=== PATIENT | male | born 1985 | race Caucasian/White ===

== ENCOUNTER 2018-01-10 16:43 | Emergency (ER) | payer SELFPAY ==
[~2018-01-10] VITALS: Ht 188 cm; Wt 77.1 kg
[2018-01-10] MEDS ORDERED: TETANUS/DIPHTHERIA TOX ADULT 0.5 ML SYR IM ONE (17:15)
--- NOTE | 2018-01-10 17:25 | Diagnostic Imaging Report ---
PROCEDURE:X-RAY LEFT HAND, THREE OR MORE VIEWS COMPARISON:None. INDICATIONS:LEFT HAND LACERATION BETWEEN 3RD AND 4TH DIGIT TODAY, R/O FB FINDINGS: 3 views of the left hand (AP, lateral, and oblique) There are no fractures, dislocations, lytic or blastic lesions. There are a few radiodensities between the metacarpals of the index and middle fingers, measuring up to 3 mm. The bones are well-mineralized. The soft-tissues are unremarkable. CONCLUSION: A few radiodensities between the metacarpals of the index and middle fingers, measuring up to 3 mm. These are suspicious for foreign bodies. Dictated by: Los Nye M.D. on 01/10/2018 at 17:31 Electronically approved by: Los Nye M.D. on 01/10/2018 at 17:31
[2018-01-10] MEDS ORDERED: LIDOCAINE HCL 1% LOCAL INJ 20 ML VIAL ONE (17:53)
[2018-01-10] MEDS ORDERED: BACITRACIN ZINC 0.9GM TP ONE (18:15)
[2018-01-10 18:22] VITALS: BP 139/83
== END 2018-01-10 18:24 | disposition home or self-care (01) ==
LOC: ER 16:43
DX: S61.412A Laceration without foreign body of left hand, initial encounter (principal); W27.8XXA Contact with other nonpowered hand tool, initial encounter; Y92.008 Other place in unspecified non-institutional (private) residence as the place of occurrence of the external cause
CPT/HCPCS: 12001; 73130; 90471; 90714; 99283; J2001